=== PATIENT | female | born 1980 | race Caucasian/White ===

== ENCOUNTER 2020-02-27 18:16 | Emergency (ER) | payer MEDICAID ==
[2020-02-27] MEDS ORDERED: XYLOCAINE 1% HCL 20 ML MDV ONE (18:22)
[2020-02-27 18:28] VITALS: BP 132/75
--- NOTE | 2020-02-27 18:35 | ERPHSYRPT ---
- History of Present Illness Time Seen by Provider: 02/27/20 18:25 Source: patient Exam Limitations: no limitations Patient Subjective Stated Complaint: laceration Triage Nursing Assessment: Patient ambulated back to ED and transferred self to bed. Patient A+O X3. Patient's skin pink, warm and dry. Patient complains of laceration to left forearm. Patient states she was holding a coffee cup on her left arm while juggling other items when the coffee cup busted and caused a laceration to left arm. Laceration noted to be 1cm X 2cm. Patient denies pain or discomfort, but states her left arm,hand are numb. Physician History: 39 years old presented in the ER with chief complaint of left forearm laceration after a coffee mug busted while she was holding it and doing other things at the same time. She has a laceration with bleeding initially, stopped after applying pressure. He is complaining of dull aching mild to moderate intensity pain, more with palpation and better with being still. No difficulty movements of finger and wrist although has some referred pain. No injury anywhere else. Up-to-date with tetanus Timing/Duration: today Quality: painful Severity: moderate Location: extremities Allergies/Adverse Reactions: No Known Drug Allergies Allergy (Unverified 02/27/20 18:21) Home Medications: No Reportable Medications [No Reported Medications] 02/27/20 [History] Hx Tetanus, Diphtheria Vaccination/Date Given: No Hx Influenza Vaccination/Date Given: No Hx Pneumococcal Vaccination/Date Given: No Immunizations Up to Date: Yes Travel Risk - International Travel Have you traveled outside of the country in past 3 weeks: No - Coronavirus Screening Are you exhibiting any of the following symptoms?: No Close contact with a COVID-19 positive Pt in past 14-21 Days: No - Review of Systems Constitutional: No Symptoms Eyes: No Symptoms Ears, Nose, & Throat: No Symptoms Respiratory: No Symptoms Cardiac: No Symptoms Abdominal/Gastrointestinal: No Symptoms Genitourinary Symptoms: No Symptoms Musculoskeletal: Injury Skin: Skin Lesions Neurological: No Symptoms Psychological: No Symptoms Endocrine: No Symptoms Hematologic/Lymphatic: No Symptoms Immunological/Allergic: No Symptoms - Past Medical History Pertinent Past Medical History: No Neurological History: No Pertinent History ENT History: No Pertinent History Cardiac History: No Pertinent History Respiratory History: No Pertinent History Endocrine Medical History: No Pertinent History Musculoskeletal History: No Pertinent History GI Medical History: No Pertinent History History: No Pertinent History Psycho-Social History: No Pertinent History Female Reproductive Disorders: No Pertinent History Other Medical History: abscess to right ovary, esophageal stretching - Past Surgical History Past Surgical History: No Neuro Surgical History: No Pertinent History Cardiac: No Pertinent History Respiratory: No Pertinent History Gastrointestinal: No Pertinent History Genitourinary: No Pertinent History Musculoskeletal: No Pertinent History Female Surgical History: No Pertinent History - Social History Smoking Status: Never smoker Exposure to second hand smoke: No Drug Use: none Patient Lives Alone: No - Female History Hx Last Menstrual Period: unknown Hx Now: No - Nursing Vital Signs Nursing Vital Signs: Initial Vital Signs Blood Pressure 132/75 02/27/20 18:21 Pain Scale Pain Intensity 0 - Physical Exam General Appearance: no apparent distress, alert Eye Exam: eyes nml inspection Ears, Nose, Throat Exam: normal ENT inspection Neck Exam: normal inspection, full range of motion Respiratory Exam: normal breath sounds, lungs clear, respiratory distress Cardiovascular Exam: regular rate/rhythm, normal heart sounds Extremity Exam: lacerations (2.5 cm linear laceration left mid forearm volar aspect. no visible tendon lesion. Intact distal neurovascular.) Neurologic Exam: alert, oriented x 3, cooperative Skin Exam: normal color SpO2 Interpretation: normal Procedures - Laceration/Wound Repair Left Upper Anterior Volar Arm Wound Location: Left, upper arm Wound Length (cm): 2.5 Wound's Depth, Shape: superficial Wound Explored: clean Irrigated: Yes Hibiclens Prep: Yes Anesthesia: 1% Lidocaine Volume Anesthetic (ccs): 5 Wound Repaired With: sutures Suture Size/Type: 4-0, nylon Number of Sutures: 4 Layer Closure?: No Ordered Tests: Medication Summary Discontinued Medications Generic Name Dose Route Start Last Admin Trade Name Jelly PRN Reason Stop Dose Admin Lidocaine HCl Confirm 02/27/20 18:22 Xylocaine 1% Hcl 20 Ml Mdv Administered 02/27/20 18:23 Dose 5 ml .ROUTE .[facility]-MED ONE - Progress Progress: improved Progress Note: I offered x-rays to rule out any foreign body, patient refused. Laceration is repaired. Recommended outpatient follow-up. Signs symptoms of worsening needing return to ER which she seemed understanding. Counseled pt/family regarding: diagnosis, need for follow-up - Departure Departure Disposition: Home Clinical Impression: Forearm laceration Qualifiers: Encounter type: initial encounter Laterality: left Qualified Code(s): S51.812A - Laceration without foreign body of left forearm, initial encounter Condition: Good Critical Care Time: No Referrals: Provider,Unknown [NON-STAFF PHY W/O PRIVILEGES] - ELLIE HULL MD [ACTIVE STAFF] - Follow Up with PCP/3 days Instructions: Laceration Repair With Stitches (DC) Additional Instructions: Take Tylenol/ibuprofen as needed for pain. Keep it clean. Follow-up with primary care physician for reevaluation. Suture removal in 7 to 10 days. Return to ER for increased swelling redness pain discharge/fever chills.
== END 2020-02-27 19:02 | disposition home or self-care (01) ==
LOC: ED 18:16
DX: S51.812A Laceration without foreign body of left forearm, initial encounter (principal); W25.XXXA Contact with sharp glass, initial encounter; Y93.89 Activity, other specified; Y92.9 Unspecified place or not applicable
CPT/HCPCS: 12001; 99283

== ENCOUNTER 2020-03-29 18:44 | Emergency (ER) | payer MEDICAID ==
--- NOTE | 2020-03-29 18:47 | ERPHSYRPT ---
- History of Present Illness Time Seen by Provider: 03/29/20 18:47 Source: patient Exam Limitations: no limitations Physician History: This is a 39-year-old white female who has been having episodes of weakness and diarrhea body aches mild shortness of breath no specific cough, no sore throat or earache. She has had fever today as high as 101. She has no known specific exposure to anybody that has tested positive for the COVID-19 virus. She has had nausea and decreased appetite because of the nausea but no vomiting. She does not have chest pain. Timing/Duration: day(s) (Jillian) Fever Severity: moderate (At home but not here) Fever Therapy MANAGER [place]: none Associated Symptoms: cough, headache, nausea/vomiting (No vomiting), sore throat (Old), weakness, No abdominal pain, No chest pain, No shortness of breath Allergies/Adverse Reactions: No Known Drug Allergies Allergy (Verified 03/29/20 19:07) Home Medications: No Reportable Medications [No Reported Medications] 02/27/20 [History] Hx Tetanus, Diphtheria Vaccination/Date Given: No Hx Influenza Vaccination/Date Given: No Hx Pneumococcal Vaccination/Date Given: No Travel Risk - International Travel Have you traveled outside of the country in past 3 weeks: No - Coronavirus Screening Are you exhibiting any of the following symptoms?: No Close contact with a COVID-19 positive Pt in past 14-21 Days: No - Review of Systems Constitutional: Weakness Eyes: No Symptoms Ears, Nose, & Throat: No Symptoms Respiratory: Cough Cardiac: No Symptoms Abdominal/Gastrointestinal: Abdominal Pain (Cramping), Nausea, Diarrhea, No Vomiting Genitourinary Symptoms: No Symptoms Musculoskeletal: No Symptoms Skin: No Symptoms Neurological: No Symptoms Psychological: No Symptoms Endocrine: No Symptoms Hematologic/Lymphatic: No Symptoms Immunological/Allergic: No Symptoms All Other Systems: Reviewed and Negative - Past Medical History Pertinent Past Medical History: No Neurological History: No Pertinent History ENT History: No Pertinent History Cardiac History: No Pertinent History Respiratory History: No Pertinent History Endocrine Medical History: No Pertinent History Musculoskeletal History: No Pertinent History GI Medical History: No Pertinent History History: No Pertinent History Psycho-Social History: No Pertinent History Female Reproductive Disorders: No Pertinent History Other Medical History: abscess to right ovary, esophageal stretching - Past Surgical History Past Surgical History: No Neuro Surgical History: No Pertinent History Cardiac: No Pertinent History Respiratory: No Pertinent History Gastrointestinal: No Pertinent History Genitourinary: No Pertinent History Musculoskeletal: No Pertinent History Female Surgical History: No Pertinent History - Social History Smoking Status: Never smoker Exposure to second hand smoke: No Drug Use: none Patient Lives Alone: No - Nursing Vital Signs Nursing Vital Signs: Initial Vital Signs Temperature 98.3 F 03/29/20 18:52 Pulse Rate 99 H 03/29/20 18:52 Blood Pressure 135/83 03/29/20 18:52 O2 Sat by Pulse Oximetry 99 03/29/20 18:52 Pain Scale Pain Intensity 0 - Physical Exam General Appearance: no apparent distress, alert, anxiety Eye Exam: PERRL/EOMI, eyes nml inspection ENT Exam: normal ENT inspection, hearing grossly normal, airway intact Neck Exam: normal inspection, non-tender, supple, full range of motion, trachea midline Respiratory Exam: normal breath sounds, chest non-tender, lungs clear, no respiratory distress Gastrointestinal/Abdominal Exam: soft, non tender, no distention, no mass, no guarding, no ecchymosis, no organomegaly, no pulsatile mass, normal bowel sounds Pelvic Exam: not done Rectal Exam: not done Extremity Exam: non-tender, normal range of motion, normal inspection, normal capillary refill Neurologic Exam: alert, oriented x 3, cooperative, tour bus driver/guide II-XII nml as tested, normal mood/affect, nml cerebellar function, nml station & gait, sensation nml Skin Exam: normal color, warm, dry Lymphatic: No adenopathy SpO2 Interpretation: normal O2 Delivery: Room Air - Course Nursing assessment & vital signs reviewed: Yes EKG Interpreted by Me: RATE (84), Sinus Rhythm, NORMAL AXIS, NORMAL INTERVALS, NORMAL QRS, Other (There is no comparison EKG) Ordered Tests: Active Orders 24 hr Category Date Time Status Maintenance Associate STAT Care 03/29/20 19:17 Active Clean Catch Urine Specimen STAT Care 03/29/20 20:35 Active EKG-ER Only STAT Care 03/29/20 19:15 Active IV Insertion STAT Care 03/29/20 19:15 Active Isolation, Initiate & Maintain STAT Care 03/29/20 19:15 Active CHEST 1 VIEW (PORTABLE) Stat Exams 03/29/20 21:12 Taken BLOOD CULTURE Stat Lab 03/29/20 19:30 Received CBC W DIFF Stat Lab 03/29/20 19:50 Completed CMP Stat Lab 03/29/20 19:50 Completed CULTURE,URINE Stat Lab 03/29/20 19:26 Received D-DIMER QUANTITATIVE Stat Lab 03/29/20 19:50 Completed Ferritin Stat Lab 03/29/20 19:50 Completed LDH-LACTATE DEHYDROGENASE Stat Lab 03/29/20 19:50 Completed TROPONIN Q3H Lab 03/29/20 19:50 Completed TROPONIN Q3H Lab 03/30/20 01:15 Ordered TROPONIN Q3H Lab 03/30/20 04:15 Ordered TROPONIN Q3H Lab 03/30/20 07:15 Ordered UA W/RFX UR CULTURE Stat Lab 03/29/20 19:26 Completed Urine Triage Profile Stat Lab 03/29/20 20:35 Completed Medication Summary Discontinued Medications Generic Name Dose Route Start Last Admin Trade Name Freq PRN Reason Stop Dose Admin Sodium Chloride Confirm 03/29/20 19:09 Sodium Chloride 0.9% 1000 Ml Administered 03/29/20 19:10 Dose 1,000 mls @ ud .ROUTE .STK-MED ONE Sodium Chloride 1,000 mls @ 999 mls/hr 03/29/20 19:18 03/29/20 20:24 Sodium Chloride 0.9% 1000 Ml IV 03/29/20 20:18 Infused .Q1H1M STA Infusion Sodium Chloride 1,000 mls @ 999 mls/hr 03/29/20 20:34 03/29/20 20:37 Sodium Chloride 0.9% 1000 Ml IV 03/29/20 21:34 999 mls/hr .Q1H1M STA Administration Sodium Chloride Confirm 03/29/20 20:37 Sodium Chloride 0.9% 1000 Ml Administered 03/29/20 20:38 Dose 1,000 mls @ ud .ROUTE .STK-MED ONE Methylprednisolone Sodium Succinate 125 mg 03/29/20 19:18 03/29/20 19:23 Solu-Medrol 125 Mg IV 03/29/20 19:19 125 mg STAT ONE Administration Methylprednisolone Sodium Succinate Confirm 03/29/20 19:22 Solu-Medrol 125 Mg Administered 03/29/20 19:23 Dose 125 mg .ROUTE .STK-MED ONE Morphine Sulfate Confirm 03/29/20 19:12 Morphine Sulfate 4 Mg Inj Administered 03/29/20 19:13 Dose 4 mg .ROUTE .STK-MED ONE Morphine Sulfate 4 mg 03/29/20 19:18 03/29/20 19:22 Morphine Sulfate 4 Mg Inj IV 03/29/20 19:19 4 mg STAT ONE Administration Ondansetron HCl Confirm 03/29/20 19:09 Zofran 4 Mg/2 Ml Vial Administered 03/29/20 19:10 Dose 4 mg .ROUTE .STK-MED ONE Ondansetron HCl 4 mg 03/29/20 19:15 03/29/20 19:22 Zofran 4 Mg/2 Ml Vial IV 03/29/20 19:16 4 mg STAT ONE Administration Lab/Rad Data: Laboratory Result Diagrams 03/29/20 19:50 03/29/20 19:50 Laboratory Results 03/29/20 03/29/20 03/29/20 Range/Units 20:35 19:50 19:50 WBC (4.0-10.5) K/mm3 RBC (4.1-5.4) M/mm3 Hgb (12.0-16.0) gm/dl Hct (35-47) % MCV (78-100) fl MCH (26-32) pg MCHC (32-36) g/dl RDW (11.5-14.0) % Plt Count (150-450) K/mm3 MPV (7.5-11.0) fl Gran % (36.0-66.0) % Eos # (Auto) (0-0.5) Absolute Lymphs (auto) (1.0-4.6) Absolute Monos (auto) (0.0-1.3) Lymphocytes % (24.0-44.0) % Monocytes % (0.0-12.0) % Eosinophils % (0.00-5.0) % Basophils % (0.0-0.4) % Absolute Granulocytes (1.4-6.9) Basophils # (0-0.4) D-Dimer (215-500) ng/mL Sodium (137-145) mmol/L Potassium (3.5-5.1) mmol/L Chloride (98-107) mmol/L Carbon Dioxide (22-30) mmol/L Anion Gap (5-15) MEQ/L BUN (7-17) mg/dL Creatinine (0.52-1.04) mg/dL Estimated GFR ML/MIN Glucose (74-106) mg/dL Calcium (8.4-10.2) mg/dL Ferritin 15.0 (6.24-137) ng/mL Total Bilirubin (0.2-1.3) mg/dL AST (14-36) U/L ALT (0-35) U/L Alkaline Phosphatase (38-126) U/L Lactate Dehydrogenase (120-246) U/L Troponin I (0.000-0.034) ng/mL Serum Total Protein (6.3-8.2) g/dL Albumin (3.5-5.0) g/dL Urine Color (YELLOW) Urine Appearance (CLEAR) Urine pH (5-6) Ur Specific [place] (1.005-1.025) Urine Protein (Negative) Urine Ketones (NEGATIVE) Urine Blood (0-5) Mate[place]/ul Urine Nitrite (NEGATIVE) Urine Bilirubin (NEGATIVE) Urine Urobilinogen (0-1) mg/dL Ur Leukocyte Esterase (NEGATIVE) Urine WBC (Auto) (0-5) /HPF Urine RBC (Auto) (0-2) /HPF U Hyaline Cast (Auto) (0-2) /LPF U Epithel Cells (Auto) (FEW) /HPF Urine Bacteria (Auto) (NEGATIVE) /HPF Calcium Oxalate Crystal (NEGATIVE) /HPF Urine Mucus (Auto) (NEGATIVE) /HPF Urine Culture Reflexed (NO) Urine Glucose (NEGATIVE) mg/dL Urine Opiates Level NEGATIVE (NEGATIVE) Ur Methadone NEGATIVE (NEGATIVE) Urine Barbiturates NEGATIVE (NEGATIVE) Ur Phencyclidine (PCP) NEGATIVE (NEGATIVE) Urine Amphetamine POSITIVE (NEGATIVE) U Benzodiazepine Level NEGATIVE (NEGATIVE) Urine Cocaine NEGATIVE (NEGATIVE) Urine Marijuana (THC) NEGATIVE (NEGATIVE) Influenza Type A Ag NEGATIVE (NEGATIVE) Influenza Type B Ag NEGATIVE (NEGATIVE) RSV (PCR) NEGATIVE (Negative) 03/29/20 03/29/20 03/29/20 Range/Units 19:50 19:50 19:50 WBC 5.8 (4.0-10.5) K/mm3 RBC 4.50 (4.1-5.4) M/mm3 Hgb 13.4 (12.0-16.0) gm/dl Hct 40.8 (35-47) % MCV 90.7 (78-100) fl MCH 29.8 (26-32) pg MCHC 32.8 (32-36) g/dl RDW 13.3 (11.5-14.0) % Plt Count 294 (150-450) K/mm3 MPV 9.0 (7.5-11.0) fl Gran % 44.4 (36.0-66.0) % Eos # (Auto) 0.46 (0-0.5) Absolute Lymphs (auto) 1.98 (1.0-4.6) Absolute Monos (auto) 0.77 (0.0-1.3) Lymphocytes % 34.1 (24.0-44.0) % Monocytes % 13.3 H (0.0-12.0) % Eosinophils % 7.9 H (0.00-5.0) % Basophils % 0.3 (0.0-0.4) % Absolute Granulocytes 2.58 (1.4-6.9) Basophils # 0.02 (0-0.4) D-Dimer 365 (215-500) ng/mL Sodium 139 (137-145) mmol/L Potassium 3.5 (3.5-5.1) mmol/L Chloride 110 H (98-107) mmol/L Carbon Dioxide 22 (22-30) mmol/L Anion Gap 9.7 (5-15) MEQ/L BUN 10 (7-17) mg/dL Creatinine 0.64 (0.52-1.04) mg/dL Estimated GFR > 60.0 ML/MIN Glucose 113 H (74-106) mg/dL Calcium 8.5 (8.4-10.2) mg/dL Ferritin (6.24-137) ng/mL Total Bilirubin 0.30 (0.2-1.3) mg/dL AST 17 (14-36) U/L ALT 11 (0-35) U/L Alkaline Phosphatase 54 (38-126) U/L Lactate Dehydrogenase 151 (120-246) U/L Troponin I (0.000-0.034) ng/mL Serum Total Protein 6.8 (6.3-8.2) g/dL Albumin 3.9 (3.5-5.0) g/dL Urine Color (YELLOW) Urine Appearance (CLEAR) Urine pH (5-6) Ur Specific [place] (1.005-1.025) Urine Protein (Negative) Urine Ketones (NEGATIVE) Urine Blood (0-5) Mate[place]/ul Urine Nitrite (NEGATIVE) Urine Bilirubin (NEGATIVE) Urine Urobilinogen (0-1) mg/dL Ur Leukocyte Esterase (NEGATIVE) Urine WBC (Auto) (0-5) /HPF Urine RBC (Auto) (0-2) /HPF U Hyaline Cast (Auto) (0-2) /LPF U Epithel Cells (Auto) (FEW) /HPF Urine Bacteria (Auto) (NEGATIVE) /HPF Calcium Oxalate Crystal (NEGATIVE) /HPF Urine Mucus (Auto) (NEGATIVE) /HPF Urine Culture Reflexed (NO) Urine Glucose (NEGATIVE) mg/dL Urine Opiates Level (NEGATIVE) Ur Methadone (NEGATIVE) Urine Barbiturates (NEGATIVE) Ur Phencyclidine (PCP) (NEGATIVE) Urine Amphetamine (NEGATIVE) U Benzodiazepine Level (NEGATIVE) Urine Cocaine (NEGATIVE) Urine Marijuana (THC) (NEGATIVE) Influenza Type A Ag (NEGATIVE) Influenza Type B Ag (NEGATIVE) RSV (PCR) (Negative) 03/29/20 03/29/20 Range/Units 19:50 19:26 WBC (4.0-10.5) K/mm3 RBC (4.1-5.4) M/mm3 Hgb (12.0-16.0) gm/dl Hct (35-47) % MCV (78-100) fl MCH (26-32) pg MCHC (32-36) g/dl RDW (11.5-14.0) % Plt Count (150-450) K/mm3 MPV (7.5-11.0) fl Gran % (36.0-66.0) % Eos # (Auto) (0-0.5) Absolute Lymphs (auto) (1.0-4.6) Absolute Monos (auto) (0.0-1.3) Lymphocytes % (24.0-44.0) % Monocytes % (0.0-12.0) % Eosinophils % (0.00-5.0) % Basophils % (0.0-0.4) % Absolute Granulocytes (1.4-6.9) Basophils # (0-0.4) D-Dimer (215-500) ng/mL Sodium (137-145) mmol/L Potassium (3.5-5.1) mmol/L Chloride (98-107) mmol/L Carbon Dioxide (22-30) mmol/L Anion Gap (5-15) MEQ/L BUN (7-17) mg/dL Creatinine (0.52-1.04) mg/dL Estimated GFR ML/MIN Glucose (74-106) mg/dL Calcium (8.4-10.2) mg/dL Ferritin (6.24-137) ng/mL Total Bilirubin (0.2-1.3) mg/dL AST (14-36) U/L ALT (0-35) U/L Alkaline Phosphatase (38-126) U/L Lactate Dehydrogenase (120-246) U/L Troponin I < 0.012 (0.000-0.034) ng/mL Serum Total Protein (6.3-8.2) g/dL Albumin (3.5-5.0) g/dL Urine Color YELLOW (YELLOW) Urine Appearance SLIGHTLY CLOUDY (CLEAR) Urine pH 5.0 (5-6) Ur Specific [place] 1.031 (1.005-1.025) Urine Protein 30 (Negative) Urine Ketones TRACE (NEGATIVE) Urine Blood MODERATE (0-5) [place]/ul Urine Nitrite NEGATIVE (NEGATIVE) Urine Bilirubin NEGATIVE (NEGATIVE) Urine Urobilinogen NEGATIVE (0-1) mg/dL Ur Leukocyte Esterase NEGATIVE (NEGATIVE) Urine WBC (Auto) 3-5 (0-5) /HPF Urine RBC (Auto) 3-5 (0-2) /HPF U Hyaline Cast (Auto) 0-2 (0-2) /LPF U Epithel Cells (Auto) RARE (FEW) /HPF Urine Bacteria (Auto) RARE (NEGATIVE) /HPF Calcium Oxalate Crystal 6-10 (NEGATIVE) /HPF Urine Mucus (Auto) MANY (NEGATIVE) /HPF Urine Culture Reflexed YES (NO) Urine Glucose NEGATIVE (NEGATIVE) mg/dL Urine Opiates Level (NEGATIVE) Ur Methadone (NEGATIVE) Urine Barbiturates (NEGATIVE) Ur Phencyclidine (PCP) (NEGATIVE) Urine Amphetamine (NEGATIVE) U Benzodiazepine Level (NEGATIVE) Urine Cocaine (NEGATIVE) Urine Marijuana (THC) (NEGATIVE) Influenza Type A Ag (NEGATIVE) Influenza Type B Ag (NEGATIVE) RSV (PCR) (Negative) - Progress Progress: improved, re-examined Progress Note: 03/29/20 22:09 Chest x-ray shows no acute cardiopulmonary process. Medical decision making: This patient does not have evidence of bacterial pneumonia. She may have a viral syndrome. Patient is afebrile, her white count is normal. She received 2 L of fluid intravenously. She states that she is feeling better but still weak. She has a COVID-19 outpatient test pending. She will require quarantine until that test result has returned. Counseled pt/family regarding: lab results, diagnosis, need for follow-up, rad results - Departure Departure Disposition: Home Clinical Impression: Viral syndrome, Diarrhea, Weakness Condition: Stable Critical Care Time: No Referrals: SERJIO DESHPANDE [Primary Care Provider] - Additional Instructions: Drink plenty of fluids. Use Tylenol and ibuprofen for pain and fever control. Quarantine yourself until after you receive the results of your COVID-19 test. Follow-up with your primary care physician for further management
[2020-03-29] MEDS ORDERED: Zofran 4 MG/2 ML VIAL ONE (19:09)
[2020-03-29] MEDS ORDERED: Sodium Chloride 0.9% 1000 ML 1,000 ML ONE ×2 (19:09→20:37)
[2020-03-29] MEDS ORDERED: MORPHINE SULFATE 4 MG INJ ONE (19:12)
[2020-03-29] MEDS: Zofran 4 MG/2 ML VIAL IV ONE (19:22)
[2020-03-29] MEDS: MORPHINE SULFATE 4 MG INJ IV ONE (19:22)
[2020-03-29] MEDS ORDERED: solu-MEDROL 125 MG ONE (19:22)
[2020-03-29] MEDS: Sodium Chloride 0.9% 1000 ML 1,000 ML IV STA ×2 (19:23→20:37)
[2020-03-29] MEDS: solu-MEDROL 125 MG IV ONE (19:23)
[2020-03-29 20:17] LABS: Absolute Neutrophil Ct (ANC) 2.58 (1.4-6.9); BASOPHIL % 0.3 % (0.0-0.4); Basophil (Absolute #) 0.02 (0-0.4); Eosinophil % 7.9 % (0.00-5.0); Eosinophil (Absolute #) 0.46 (0-0.5); Hematocrit 40.8 % (35-47); Hemoglobin 13.4 gm/dl (12.0-16.0); Lymphocyte (Absolute #) 1.98 (1.0-4.6); Lymphocytes % 34.1 % (24.0-44.0); Mean Cell Volume 90.7 fl (78-100); Mean Corpuscular Hemoglobin 29.8 pg (26-32); Mean Corpuscular Hgb Concent. 32.8 g/dl (32-36); Monocyte (Absolute #) 0.77 (0.0-1.3); Monocytes % 13.3 % (0.0-12.0); Neutrophil % 44.4 % (36.0-66.0); Platelet Count 294 K/mm3 (150-450); Red Cell Distribution Width 13.3 % (11.5-14.0); White Blood Count 5.8 K/mm3 (4.0-10.5)
[2020-03-29 20:21] LABS: ALBUMIN 3.9 g/dL (3.5-5.0); ALKALINE PHOSPHATASE 54 U/L (38-126); ANION GAP 9.7 MEQ/L (5-15); BLOOD UREA NITROGEN 10 mg/dL (7-17); CHLORIDE 110 mmol/L (98-107); Calcium 8.5 mg/dL (8.4-10.2); Carbon Dioxide 22 mmol/L (22-30); Creatinine 1 0.64 mg/dL (0.52-1.04); EST GLOMERULAR FILTRATION RATE > 60.0 ML/MIN; Glucose 113 mg/dL (74-106); LDH-LACTATE DEHYDROGENASE 151 U/L (120-246); Potassium 3.5 mmol/L (3.5-5.1); SGOT/AST 17 U/L (14-36); SGPT/ALT 11 U/L (0-35); SODIUM 139 mmol/L (137-145); Total Protein 6.8 g/dL (6.3-8.2)
[2020-03-29 20:24] LABS: Appearance SLIGHTLY CLOUDY (CLEAR); Bacteria RARE /HPF (NEGATIVE); Bilirubin NEGATIVE (NEGATIVE); Blood MODERATE Ery/ul (0-5); Epithelial Cells RARE /HPF (FEW); Glucose NEGATIVE (NEGATIVE); Hyaline Casts 0-2 /LPF (0-2); Ketones TRACE (NEGATIVE); Leukocyte Esterase NEGATIVE (NEGATIVE); Mucus MANY /HPF (NEGATIVE); Nitrite NEGATIVE (NEGATIVE); Protein,Urine Dip 30 (Negative); Specific Gravity 1.031 (1.005-1.025); Urobilinogen NEGATIVE mg/dL (0-1)
[2020-03-29 21:00] LABS: INFLUENZA A NEGATIVE (NEGATIVE); INFLUENZA B NEGATIVE (NEGATIVE); RESPIRATORY SYNCTIAL VIRUS NEGATIVE (Negative)
[2020-03-29 21:05] VITALS: O2SAT 96
[2020-03-29 21:08] LABS: Barbiturate,Urine NEGATIVE (NEGATIVE); Benzodiazepine,Urine NEGATIVE (NEGATIVE); Cocaine,Urine NEGATIVE (NEGATIVE); Methadone,Urine NEGATIVE (NEGATIVE); Opiate,Urine NEGATIVE (NEGATIVE); PCP,Urine NEGATIVE (NEGATIVE); THC,Urine NEGATIVE (NEGATIVE)
[2020-03-29 22:06] LABS: Amphetamine,Urine POSITIVE (NEGATIVE)
[2020-03-29 22:35] VITALS: BP 111/67; PULSE 84
--- NOTE | 2020-03-30 08:58 | XRAY ---
Indication: Flu symptoms. Fever. Comparison: None Portable chest demonstrates normal heart and lungs with incidental tiny calcified granulomas. Bony thorax intact.
== END 2020-03-29 22:36 | disposition home or self-care (01) ==
LOC: ED 18:44
DX: B34.9 Viral infection, unspecified (principal); R19.7 Diarrhea, unspecified; R53.1 Weakness
CPT/HCPCS: 36000; 36415; 71045; 80053; 80307; 81001; 82728; 83615; 84484; 85025; 85379; 87040; 87086; 87631; 93005; 93041; 96360; 96361; 96374; 96375; 99285; J2270; J2405; J2930; U0003

== ENCOUNTER 2021-02-12 12:02 | Emergency (ER) | payer OTHER ==
[2021-02-12 12:16] VITALS: BP 153/84; PULSE 99; O2SAT 98
--- NOTE | 2021-02-12 12:29 | ERPHSYRPT ---
- History of Present Illness Time Seen by Provider: 02/12/21 12:26 Source: patient Exam Limitations: no limitations Patient Subjective Stated Complaint: Pt states that she has been having left ovary pain for the past 1.5-2 weeks Triage Nursing Assessment: Pt drove self to the ER, hypertensive, rates pain 01/04, pt states that they removed an abscess off of her left ovary in August of last year and her period has not been regular since, she has now been having pain in her left ovary for the past 1.5-2 weeks, unsure if she is , pt has been having to urinate frequently and does have pain with urinating Physician History: Pt states that she has been having left ovary pain for the past 1.5-2 weeks pt states that they removed an abscess off of her left ovary in August of last year and her period has not been regular since, she has now been having pain in her left ovary for the past 1.5-2 weeks, unsure if she is , pt has been having to urinate frequently and does have pain with urinating Timing/Duration: week(s) (1-2 weeks), intermittent Activites at Onset: none Quality: cramping Onset Location: LLQ Pain Radiation: none Severity of Pain-Max: mild Severity of Pain-Current: moderate Prior abdominal problems: none Sexual intercourse history: non-contributory Modifying Factors: Improves With: nothing Associated Symptoms: dysuria, urinary frequency Allergies/Adverse Reactions: No Known Drug Allergies Allergy (Verified 02/12/21 12:16) Hx Tetanus, Diphtheria Vaccination/Date Given: No Hx Influenza Vaccination/Date Given: No Hx Pneumococcal Vaccination/Date Given: No Travel Risk - International Travel Have you traveled outside of the country in past 3 weeks: No - Coronavirus Screening Are you exhibiting any of the following symptoms?: No Close contact with a COVID-19 positive Pt in past 14-21 Days: No - Vaccine Status Have you recieved a Covid-19 vaccination: No - Review of Systems Constitutional: No Fever, No Chills Eyes: No Symptoms Ears, Nose, & Throat: No Symptoms Respiratory: No Cough, No Dyspnea Cardiac: No Chest Pain, No Edema, No Syncope Abdominal/Gastrointestinal: Abdominal Pain (LLQ), No Nausea, No Vomiting, No Diarrhea Genitourinary Symptoms: Dysuria, Frequency, No Hematuria, No Flank Pain, No Vaginal Bleeding, No Vaginal Discharge, No Vaginal Itching Musculoskeletal: No Back Pain, No Neck Pain Skin: No Rash Neurological: No Dizziness, No Focal Weakness, No Sensory Changes Psychological: No Symptoms Endocrine: No Symptoms Hematologic/Lymphatic: No Symptoms Immunological/Allergic: No Symptoms All Other Systems: Reviewed and Negative - Past Medical History Pertinent Past Medical History: No Neurological History: No Pertinent History ENT History: No Pertinent History Cardiac History: No Pertinent History Respiratory History: No Pertinent History Endocrine Medical History: No Pertinent History Musculoskeletal History: No Pertinent History GI Medical History: No Pertinent History History: No Pertinent History Psycho-Social History: No Pertinent History Female Reproductive Disorders: No Pertinent History Other Medical History: abscess to right ovary, esophageal stretching - Past Surgical History Past Surgical History: No Neuro Surgical History: No Pertinent History Cardiac: No Pertinent History Respiratory: No Pertinent History Gastrointestinal: No Pertinent History Genitourinary: No Pertinent History Musculoskeletal: No Pertinent History Female Surgical History: No Pertinent History - Social History Smoking Status: Never smoker Exposure to second hand smoke: Yes Drug Use: none Patient Lives Alone: No - Female History Hx Last Menstrual Period: 12/29/2020 Hx Now: No (unknown) - Nursing Vital Signs Nursing Vital Signs: Initial Vital Signs Temperature 96.6 F 02/12/21 12:07 Pulse Rate 99 H 02/12/21 12:07 Blood Pressure 153/84 02/12/21 12:07 O2 Sat by Pulse Oximetry 98 02/12/21 12:07 Pain Scale Pain Intensity 8 - Physical Exam General Appearance: no apparent distress, alert Eye Exam: PERRL/EOMI, eyes nml inspection Ears, Nose, Throat Exam: normal ENT inspection, TMs normal, pharynx normal, moist mucous membranes Neck Exam: normal inspection, non-tender, supple, full range of motion Respiratory Exam: normal breath sounds, lungs clear, No respiratory distress Cardiovascular Exam: regular rate/rhythm, normal heart sounds, normal peripheral pulses Gastrointestinal/Abdomen Exam: soft, tenderness (LLQ), No mass Back Exam: normal inspection, normal range of motion, No CVA tenderness, No vertebral tenderness Extremity Exam: normal inspection, normal range of motion, pelvis stable Neurologic Exam: alert, oriented x 3, cooperative, cullet washer II-XII nml as tested, normal mood/affect, sensation nml, No motor deficits Skin Exam: normal color, warm, dry Lymphatic Exam: No adenopathy SpO2: 98 - Course Nursing assessment & vital signs reviewed: Yes Ordered Tests: Active Orders 24 hr Category Date Time Status BMP Stat Lab 02/12/21 12:41 Received CBC W DIFF Stat Lab 02/12/21 12:54 Completed HCG,QUALITATIVE URINE Stat Lab 02/12/21 12:41 Completed UA W/RFX UR CULTURE Stat Lab 02/12/21 12:41 Completed Lab/Rad Data: Laboratory Result Diagrams 02/12/21 12:54 Laboratory Results 02/12/21 02/12/21 02/12/21 Range/Units 12:54 12:41 12:41 WBC 5.6 (4.0-10.5) K/mm3 RBC 4.43 (4.1-5.4) M/mm3 Hgb 13.0 (12.0-16.0) gm/dl Hct 39.9 (35-47) % MCV 90.1 (78-100) fl MCH 29.3 (26-32) pg MCHC 32.6 (32-36) g/dl RDW 13.2 (11.5-14.0) % Plt Count 270 (150-450) K/mm3 MPV 8.9 (7.5-11.0) fl Gran % 47.4 (36.0-66.0) % Eos # (Auto) 0.48 (0-0.5) Absolute Lymphs (auto) 1.71 (1.0-4.6) Absolute Monos (auto) 0.73 (0.0-1.3) Lymphocytes % 30.5 (24.0-44.0) % Monocytes % 13.0 H (0.0-12.0) % Eosinophils % 8.6 H (0.00-5.0) % Basophils % 0.5 (0.0-0.4) % Absolute Granulocytes 2.65 (1.4-6.9) Basophils # 0.03 (0-0.4) Urine Color YELLOW (YELLOW) Urine Appearance SLIGHTLY CLOUDY (CLEAR) Urine pH 5.0 (5-6) Ur Specific [place] 1.031 (1.005-1.025) Urine Protein NEGATIVE (Negative) Urine Ketones NEGATIVE (NEGATIVE) Urine Blood SMALL (0-5) Mateus/ul Urine Nitrite NEGATIVE (NEGATIVE) Urine Bilirubin NEGATIVE (NEGATIVE) Urine Urobilinogen NEGATIVE (0-1) mg/dL Ur Leukocyte Esterase NEGATIVE (NEGATIVE) Urine WBC (Auto) NONE (0-5) /HPF Urine RBC (Auto) 0-2 (0-2) /HPF U Epithel Cells (Auto) RARE (FEW) /HPF Urine Bacteria (Auto) NONE (NEGATIVE) /HPF Urine Mucus (Auto) SLIGHT (NEGATIVE) /HPF Urine Culture Reflexed NO (NO) Urine Glucose NEGATIVE (NEGATIVE) mg/dL Urine HCG, Qual NEGATIVE (Negative) - Progress Progress: improved Air Movement: good Blood Culture(s) Obtained: No Antibiotics given: No Counseled pt/family regarding: lab results, diagnosis, need for follow-up (with Dr Duong, Dr Epps) - Departure Departure Disposition: Home Clinical Impression: Ovarian cyst, left Condition: Stable Critical Care Time: No Referrals: SERJIO DESHPANDE [Primary Care Provider] - KURT DUONG DO [ACTIVE STAFF] - Follow Up with PCP/3 days Instructions: Ovarian Cyst (DC) Additional Instructions: Discharge/Care Plan YULISSA GUARDADO was seen on 02/12/21 in the Emergency Room. The patient was counseled regarding Diagnosis,Lab results, Imaging studies, need for follow up and when to return to the Emergency Room. Prescriptions given: Discharge Note I have spoken with the patient and/or caregivers. I have explained the patient's condition, diagnosis and treatment plan based on the information available to me at this time. I have answered the patient's and/or caregiver's questions and addressed any concerns. The patient and/or caregivers have as good understanding of the patient's diagnosis, condition and treatment plan as can be expected at this point. The vital signs have been stable. The patient's condition is stable and appropriate for discharge from the emergency department. The patient will pursue further outpatient evaluation with the primary care physician or other designated or consulting physician as outlined in the discharge instructions. The patient and/or caregivers are agreeable to this plan of care and follow-up instructions have been explained in detail. The patient and/or caregivers have received these instruction. The patient/and or caregivers are aware that any significant change in condition or worsening of symptoms should prompt an immediate return to this or the closest emergency department or call 911. YULISSA LANCASTER was seen on 02/12/21 n the Emergency Room. At that time you were treated for an emergent condition, during your visit Laboratory, Radiology and/or other procedures may have been ordered. It is very important that you follow-up with your Primary Care Physician SERJIO DESHPANDE within the next 24-48 hours to review your Emergency Room visit and the final results of testing that was ordered. Some test results such as Urine Cultures, Blood Cultures, and other cultures if ordered will not be finalized for 24-48 hours. If you do not have a Primary Care Provider please call the medical records department at [phone] ext [phone] to obtain a copy of your results or you may sign into our patient portal to obtain these results by visiting us @ [email or web address] and completing the following steps: 1. Click on the Patient Portal link 2. Click the Patient Self Enrollment Link to complete the enrollment form and entering your 3. Once the enrollment form is completed you will receive an email with a temporary ID and password at the email address you provided. 4. Next choose a user name and password. Your user name must be at least 4 characters long and your password must be at least 4 characters long. 5. Choose a security question from the list and provide your answer to the question. If you already have signed into the Health Portal you may access your Health Care Information 18/12 by the following steps: 1. Login to our website @ [email or web address] 2. Enter your original user name and password. FAQS The [facility] Health Portal is an online tool that contains your Lab Results, Radiology Reports, Visit History, Discharge Instructions and Health Summary Lab and Radiology Results will not be available for 72 hours on the portal. The Portal is a secure site, passwords are encryted and URLs are re-written so they cannot be copied and pasted. You and authorized family members are the only ones who can access your Portal. Also there is a timeout feature that protects your information if you leave the Portal page open. If you have technical difficulty please use the Contact Us link on the page this will allow you to submit any questions you have regarding the Portal or you may contact the Medical Record Department at [phone] ext [phone]. Please follow-up with Dr. Duong and Dr. Epps for further management of your problem. If you are abdominal pain got worse come back to the emergency room. Prescriptions: Ciprofloxacin [Cipro 500 MG] 500 mg PO BIDAC #20 tablet Naproxen 375 mg [Naprosyn 375 mg] 375 mg PO Q8H #30 tablet
[2021-02-12 12:57] LABS: Absolute Neutrophil Ct (ANC) 2.65 (1.4-6.9); BASOPHIL % 0.5 % (0.0-0.4); Basophil (Absolute #) 0.03 (0-0.4); Eosinophil % 8.6 % (0.00-5.0); Eosinophil (Absolute #) 0.48 (0-0.5); Hematocrit 39.9 % (35-47); Lymphocyte (Absolute #) 1.71 (1.0-4.6); Lymphocytes % 30.5 % (24.0-44.0); Mean Cell Volume 90.1 fl (78-100); Mean Corpuscular Hemoglobin 29.3 pg (26-32); Mean Corpuscular Hgb Concent. 32.6 g/dl (32-36); Mean Platelet Volume 8.9 fl (7.5-11.0); Monocyte (Absolute #) 0.73 (0.0-1.3); Neutrophil % 47.4 % (36.0-66.0); Platelet Count 270 K/mm3 (150-450); Red Blood Count 4.43 M/mm3 (4.1-5.4); Red Cell Distribution Width 13.2 % (11.5-14.0); White Blood Count 5.6 K/mm3 (4.0-10.5)
[2021-02-12 13:02] LABS: Appearance SLIGHTLY CLOUDY (CLEAR); Bilirubin NEGATIVE (NEGATIVE); Blood SMALL Ery/ul (0-5); Epithelial Cells RARE /HPF (FEW); Glucose NEGATIVE (NEGATIVE); Ketones NEGATIVE (NEGATIVE); Leukocyte Esterase NEGATIVE (NEGATIVE); Mucus SLIGHT /HPF (NEGATIVE); Nitrite NEGATIVE (NEGATIVE); Protein,Urine Dip NEGATIVE (Negative); RBC 0-2 /HPF (0-2); Specific Gravity 1.031 (1.005-1.025); Urobilinogen NEGATIVE mg/dL (0-1)
[2021-02-12 13:07] LABS: ANION GAP 11.1 MEQ/L (5-15); BLOOD UREA NITROGEN 11 mg/dL (7-17); CHLORIDE 104 mmol/L (98-107); Calcium 8.8 mg/dL (8.4-10.2); Carbon Dioxide 24 mmol/L (22-30); Creatinine 1 0.64 mg/dL (0.52-1.04); EST GLOMERULAR FILTRATION RATE > 60.0 ML/MIN; Glucose 83 mg/dL (74-106); Potassium 4.2 mmol/L (3.5-5.1); SODIUM 135 mmol/L (137-145)
== END 2021-02-12 13:52 | disposition home or self-care (01) ==
LOC: ED 12:02
DX: N83.202 Unspecified ovarian cyst, left side (principal); R10.32 Left lower quadrant pain
CPT/HCPCS: 36415; 80048; 81001; 84703; 85025; 99283